=== PATIENT | male | born 1945 | race Caucasian/White ===

== ENCOUNTER 2017-08-02 09:15 | Day surgery (SDC) ==
[2016-07-16 16:42] VITALS: BMI 29.2
[2017-08-02] MEDS ORDERED: LIDOCAINE 1% 20 ML MDV ID STA (10:22)
[2017-08-02] MEDS ORDERED: VERSED ONE (11:10)
[2017-08-02] MEDS ORDERED: DIPRIVAN 20 ML VIAL IVP ONE (11:10)
[2017-08-02 11:55] VITALS: BP 126/74; TEMP 98.4
--- NOTE | 2017-08-03 08:43 | OP ---
PROCEDURE: COLONOSCOPY TO THE CECUM WITH SNARE POLYPECTOMY. ENDOSCOPIST: Andrew GRIGSBY M.D. INDICATION: HISTORY OF POLYPS INSTRUMENT: [id number]. MEDICATION: PER ANESTHESIA. PROCEDURE: The patient was positioned for colonoscopy. The digital rectal exam was negative. The colonoscope was inserted through the anus and advanced to the cecum. The cecum was identified using the ileocecal valve and the appendiceal orifice as landmarks. The scope was slowly withdrawn through an adequately prepped colon. A small polyp at 60cm removed using snare cautery. Remaining evaluation was normal. Retroflex exam was negative. The patient tolerated the procedure without immediate complication. Withdraw time 10 minutes and 55 seconds. PLAN: 1. Suggest repeat colonoscopy in 5 years. CC: Dr. Lewis COREA
== END 2017-08-02 12:13 | disposition home or self-care (01) ==
LOC: SURG 09:15
PROVIDERS: ATTEND Internal Medicine Gastroenterology
DX: Z09 Encounter for follow-up examination after completed treatment for conditions other than malignant neoplasm (principal); Z86.010 Personal history of colon polyps; K63.5 Polyp of colon